=== PATIENT | male | born 1990 | race Caucasian/White ===

== ENCOUNTER 2016-10-12 15:51 | Emergency (ER) | payer MEDICARE, MEDICAID ==
[2016-10-12] MEDS ORDERED: Acetaminophen TAB* 325 MG PO ONE (17:48)
[2016-10-12] MEDS ORDERED: Amoxicillin CAP* 250 MG PO ONE (18:09)
--- NOTE | 2016-10-12 18:10 | ED ---
Influenza-Like Illness - HPI Summary HPI Summary: Patient presents with sore throat and cough since last night. He says his throat chopra when he swallows. He denies fever, chills, [place], SOB or back pain. He has not been around any ill contacts. No difficulty breathing. 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 Onset/Duration: Gradual Onset Severity: Mild Associated Signs & Symptoms: Cough, Sore Throat - Allergy/Home Medications Allergies/Adverse Reactions: Allergies Allergy/AdvReac Type Severity Reaction Status Date / Time No Known Allergies Allergy Verified 03/25/15 14:10 PMH/Surg Hx/FS Hx/Imm Hx Neurological History: Reports: Hx Seizures Infectious Disease History: No Infectious Disease History: Denies: History Other Infectious Disease, Traveled Outside the in Last 30 Days - Family History Known Family History: Positive: None - Social History Occupation: Unemployed Lives: With Family Alcohol Use: None Substance Use Type: Reports: None Smoking Status (MU): Never Smoked Tobacco Review of Systems Positive: Fatigue. Negative: Fever, Chills Positive: Sore Throat, Nasal Discharge. Negative: Ear Ache Negative: Chest Pain Positive: Cough. Negative: Shortness Of Breath Negative: Vomiting, Diarrhea, Nausea Negative: Headache All Other Systems Reviewed And Are Negative: Yes Physical Exam Triage Information Reviewed: Yes Vital Signs On Initial Exam: Initial Vitals Temp Pulse Resp BP Pulse Ox 98.6 F 119 20 156/106 99 10/12/16 15:54 10/12/16 15:54 10/12/16 15:54 10/12/16 15:54 10/12/16 15:54 Vital Signs Reviewed: Yes Appearance: Positive: Well-Appearing, No Pain Distress, Obese Skin: Positive: Warm, Skin Color Reflects Adequate Perfusion, Dry, Soft Head/Face: Positive: Normal Head/Face Inspection Eyes: Positive: EOMI, SURJIT, Conjunctiva Clear ENT: Positive: Hearing grossly normal, Pharyngeal erythema, TMs normal. Negative: Tonsillar swelling, Tonsillar exudate Neck: Positive: Supple, Nontender, No Lymphadenopathy Respiratory/Lung Sounds: Positive: Clear to Auscultation, Breath Sounds Present Cardiovascular: Positive: RRR - on exam Abdomen Description: Positive: Nontender, Soft Bowel Sounds: Positive: Present Musculoskeletal: Negative: Edema Left, Edema Right Neurological: Positive: Sensory/Motor Intact, Alert, Oriented to Person Place, Time, NV Bundle Intact Distally, Normal Gait Psychiatric: Positive: Affect/Mood Appropriate AVPU Assessment: Alert Diagnostics - Vital Signs Vital Signs Temp Pulse Resp BP Pulse Ox 10/12/16 17:20 98.6 F 119 22 156/109 99 10/12/16 15:54 98.6 F 119 20 156/106 99 - Laboratory Lab Results: Lab Results 10/12/16 Range/Units 17:15 Group A Strep Rapid Positive H (Negative) Lab Statement: Any lab studies that have been ordered have been reviewed, and results considered in the medical decision making process. Flu Symptom Course/Dx - Diagnoses Differential Diagnosis/HQI/PQRI: Positive: Bronchitis, Influenza, Pneumonia, Upper Respiratory Infection Provider Diagnoses: Strep pharyngitis Discharge - Discharge Plan Condition: Stable Disposition: HOME Prescriptions: Amoxicillin CAP* [Amoxicillin 500 MG CAP*] 500 mg PO Q12H #19 cap Patient Education Materials: Strep Throat (ED) Referrals: Adam Lim MD [Primary Care Provider] - Additional Instructions: Please take the antibiotics prescribed until they are completely gone. Follow- up with your primary care provider if your symptoms do not begin to improve in the next 2-3 days. Return to the emergency department if symptoms worsen.
[2016-10-12 18:39] VITALS: BP 159/92
== END 2016-10-12 18:39 | disposition home or self-care (01) ==
LOC: ED 15:51
DX: J02.0 Streptococcal pharyngitis (principal)
CPT/HCPCS: 87651; 99282; A9270-GY

== ENCOUNTER 2016-11-15 17:39 | Emergency (ER) | payer MEDICARE, MEDICAID ==
[2016-11-15] MEDS ORDERED: Ondansetron INJ* 2 MG/ML VIAL IV ONE (20:05)
[2016-11-15] MEDS ORDERED: Pantoprazole IV* 40 MG IV ONE (20:05)
[2016-11-15] MEDS ORDERED: NS 0.9% 1000 ML* 2,000 ML IV ONE (20:05)
[2016-11-15 20:24] LABS: Hematocrit 40 % (42-52); Hemoglobin 13.3 g/dl (14.0-18.0); Mean Corpuscular HGB Conc 33 g/dl (31-36); Mean Corpuscular Hemoglobin 28 pg (27-31); Mean Corpuscular Volume 85 fL (80-94); Mean Platelet Volume 8 um3 (7.4-10.4); Red Blood Count 4.71 10^6/ul (4.0-5.4); Red Cell Distribution Width 14 % (10.5-15); White Blood Count 11.3 10^3/ul (3.5-10.8)
[2016-11-15 20:36] LABS: Albumin 4.3 g/dL (3.2-5.2); BUN/Creatinine Ratio 11.3 (8-20); C Reactive Protein 2.99 mg/L (< 5.00); Calcium 9.3 mg/dL (8.6-10.3); EGFR African American 203.3 (>60); EGFR Non-African American 158.1 (>60); Globulin 3.5 g/dL (2-4); Potassium 3.9 mmol/L (3.5-5.0); Total Bilirubin 0.6 mg/dL (0.2-1.0); Total Protein 7.8 g/dL (6.4-8.9)
--- NOTE | 2016-11-15 21:05 | RAD ---
INDICATION: Sharp RIGHT chest pain. Aggravated by coughing and deep inspiration. COMPARISON: No relevant prior exams available on the [facility] PACS for comparison. TECHNIQUE: Dual energy PA and routine lateral views of the chest were obtained. REPORT: Suboptimal inspiration on the PA view with resulting mild crowding of the pulmonary markings. No compelling alveolar consolidation to raise concern for pneumonia. No focal pulmonary lesion, pleural effusion, or pneumothorax. The heart, pulmonary vasculature, and mediastinal contours are unremarkable. IMPRESSION: No evidence for acute intrathoracic disease.
[2016-11-15 22:18] VITALS: BP 172/97
--- NOTE | 2016-11-16 05:03 | ED ---
Linda Lauren Alok, scribed for Domo Gamble MD on 11/15/16 at 1958 . Complex/Multi-Sys Presentation - HPI Summary HPI Summary: 26M presents to the ED for body tremors and a red face after coming home from baseball this evening. Pt states that his body tremors affected only his upper extremities bilaterally and were unwitnessed at the time of their onset. Pt also notes vomiting, diarrhea, mid-sternal CP, cough, SOB when coughing, chills and diaphoresis even earlier today. Pt states he vomited 4-5 times today with brown emesis. Pt states that his CP is sharp and aggravated by vomiting and cough. Pt notes being around "some sick people" recently. Pt denies eating anything unusual today. Pt denies fever or LOC. Pt denies lower extremity pain or swelling. Pt denies sore throat or rhinorrhea. PMHx includes h/o sz described with eyes rolling backwards. Pt denies seizure today and states he has not had one recently. Pt also notes h/o strep throat 3 weeks ago. - History Of Current Complaint Chief Complaint: EDGeneral Time Seen by Provider: 11/15/16 19:41 Hx Obtained From: Patient Onset/Duration: Lasting Hours, Still Present Timing: Constant Severity Currently: Moderate Severity Initially: Moderate Associated Signs And Symptoms: Positive: SOB, Cough, Chest Pain, Nausea, Vomiting, Diarrhea, Abdominal Pain, Diaphoresis. Negative: Syncope, Edema, Fever - Allergies/Home Medications Allergies/Adverse Reactions: Allergies Allergy/AdvReac Type Severity Reaction Status Date / Time No Known Allergies Allergy Verified 03/25/15 14:10 PMH/Surg Hx/FS Hx/Imm Hx Neurological History: Reports: Hx Seizures Infectious Disease History: Unable to Obtain/Confirm Infectious Disease History: Denies: History Other Infectious Disease, Traveled Outside the [place] in Last 30 Days - Family History Known Family History: Negative: Cardiac Disease, Hypertension, Diabetes - Social History Occupation: Student Lives: With Family Alcohol Use: None Substance Use Type: Reports: None Smoking Status (MU): Never Smoked Tobacco Review of Systems Positive: Chills, Skin Diaphoresis, Other - facial reddness . Negative: Fever Negative: Sore Throat, Nasal Discharge Positive: Chest Pain Positive: Shortness Of Breath, Cough Positive: Vomiting, Diarrhea, Nausea Positive: Other - body tremors. Negative: Edema Negative: Syncope All Other Systems Reviewed And Are Negative: Yes Physical Exam - Summary Physical Exam Summary: The patient is obese in no acute distress and in no acute pain. The skin is warm and diaphoretic and skin color reflects adequate perfusion. HEENT: The head is normocephalic and atraumatic. The pupils are equal and reactive. The conjunctivae are clear and without drainage. Nares are patent and without drainage. Mouth reveals dry mucous membranes and the throat is without erythema and exudate. The external ears are intact. The ear canals are patent and without drainage. The tympanic membranes are intact. Neck is supple with full range of motion and non-tender. There are no carotid bruits. There is no neck vein distension. Respiratory: Patient points to mid-sternal chest tenderness. Lungs are clear to auscultation and breath sounds are symmetrical and equal. No rales, rhonchi, or wheezing. Cardiovascular: Heart is regular rate and rhythm. There is no murmur or rub auscultated. There is no pitting edema and pulses are symmetrical and equal. Abdomen: The abdomen is soft and non-tender. No epigastric tenderness. There are normal bowel sounds heard in all four quadrants and there is no organomegaly palpated. Musculoskeletal: There is no back pain noted. Extremities are non-tender with full range of motion. There is good capillary refill. There is no pitting edema or calf tenderness elicited. No body tremors. Neurological: Patient is alert and oriented to person, place and time. The patient has symmetrical motor strength in all four extremities. Cranial nerves are grossly intact. Deep tendon reflexes are symmetrical and equal in all four extremities. Good [id number] . No pronator drift. Psychiatric: The patient has an appropriate affect and does not exhibit any anxiety or depression. Triage Information Reviewed: Yes Vital Signs On Initial Exam: Initial Vitals Temp Pulse Resp BP Pulse Ox 98.2 F 104 20 164/94 100 11/15/16 17:41 11/15/16 17:41 11/15/16 17:41 11/15/16 17:41 11/15/16 17:41 Vital Signs Reviewed: Yes - Sushila Coma Scale Coma Scale Total: 15 Diagnostics - Vital Signs Vital Signs Temp Pulse Resp BP Pulse Ox 11/15/16 19:30 91 157/93 97 11/15/16 19:00 92 155/104 96 07/26/17 18:32 96 21 97 11/15/16 18:30 160/91 11/15/16 18:29 98.3 F 97 20 174/89 98 11/15/16 17:41 98.2 F 104 20 164/94 100 - Laboratory Lab Results: Lab Results 11/15/16 11/15/16 11/15/16 Range/Units 20:06 20:06 20:06 WBC 11.3 H (3.5-10.8) 10^3/ul RBC 4.71 (4.0-5.4) 10^6/ul Hgb 13.3 L (14.0-18.0) g/dl Hct 40 L (42-52) % MCV 85 (80-94) fL MCH 28 (27-31) pg MCHC 33 (31-36) g/dl RDW 14 (10.5-15) % Plt Count 213 (150-450) 10^3/ul MPV 8 (7.4-10.4) um3 Neut % (Auto) 55.0 (38-83) % Lymph % (Auto) 35.6 (25-47) % Quay % (Auto) 6.6 (1-9) % Eos % (Auto) 0.9 (0-6) % Baso % (Auto) 1.9 (0-2) % Absolute Neuts (auto) 6.2 (1.5-7.7) 10^3/ul Absolute Lymphs (auto) 4.0 (1.0-4.8) 10^3/ul Absolute Monos (auto) 0.7 (0-0.8) 10^3/ul Absolute Eos (auto) 0.1 (0-0.6) 10^3/ul Absolute Basos (auto) 0.2 (0-0.2) 10^3/ul Absolute Nucleated RBC 0.01 10^3/ul Nucleated RBC % 0.1 Sodium 135 (133-145) mmol/L Potassium 3.9 (3.5-5.0) mmol/L Chloride 102 (101-111) mmol/L Carbon Dioxide 26 (22-32) mmol/L Anion Gap 7 (2-11) mmol/L BUN 7 (6-24) mg/dL Creatinine 0.62 L (0.67-1.17) mg/dL Est GFR ( Amer) 203.3 (>60) Est GFR (Non-Af Amer) 158.1 (>60) BUN/Creatinine Ratio 11.3 (8-20) Glucose 95 (70-100) mg/dL Lactic Acid 1.6 (0.5-2.0) mmol/L Calcium 9.3 (8.6-10.3) mg/dL Total Bilirubin 0.60 (0.2-1.0) mg/dL AST 25 (13-39) U/L ALT 46 (7-52) U/L Alkaline Phosphatase 31 L (34-104) U/L C-Reactive Protein 2.99 (< 5.00) mg/L Total Protein 7.8 (6.4-8.9) g/dL Albumin 4.3 (3.2-5.2) g/dL Globulin 3.5 (2-4) g/dL Albumin/Globulin Ratio 1.2 (1-3) Amylase 29 (29-103) U/L Lipase 36 (11.0-82.0) U/L Valproic Acid 84.0 (50-100) mcg/mL Result Diagrams: 11/15/16 20:06 11/15/16 20:06 Lab Statement: Any lab studies that have been ordered have been reviewed, and results considered in the medical decision making process. - Radiology CXR Xray Interpretation: Positive (See Comments) - IMPRESSION: No evidence for acute intrathoracic disease. Radiology Interpretation Completed By: Radiologist - EKG 1843 Cardiac Rate: NL - 96 bpm EKG Rhythm: Sinus Rhythm EKG Interpretation: Normal axis. Poor R-wave progression. Re-Evaluation - Re-Evaluation First Eval Re-Evaluation Time: 22:15 Comment: Patient notes mild pain with food injestion Complex Multi-Symp Course/Dx Course Of Treatment: 26 y/o male presents with CP and N/V/D. He was given IV fluids and anti-nausea medications. EKG and CXR both normal. Will discharge home with rx for Prilosec and Zofran and instructions to FU with PCP. - Diagnoses Provider Diagnoses: GERD (gastroesophageal reflux disease), HTN (hypertension) Discharge - Discharge Plan Condition: Stable Disposition: HOME Prescriptions: Omeprazole CAP* [Prilosec CAP* 20 MG] 20 mg PO DAILY #30 cap. Ondansetron ODT TAB* [Zofran 4 MG Odt TAB*] 4 mg PO Q8H PRN #10 tab.odt PRN Reason: nausea Patient Education Materials: Gastroesophageal Reflux Disease (ED), Hypertension (ED) Referrals: Danna JACKSON,Leatha Brink [Primary Care Provider] - Additional Instructions: Please follow up with your primary care provider The documentation as recorded by the Linda jacobs Alok accurately reflects the service I personally performed and the decisions made by , Domo Gamble MD.
== END 2016-11-15 22:30 | disposition home or self-care (01) ==
LOC: ED 17:39 → SUPCPDRO 17:39 → ED 22:30
DX: K21.9 Gastro-esophageal reflux disease without esophagitis (principal); I10 Essential (primary) hypertension; R06.02 Shortness of breath; R05 Cough; R07.9 Chest pain, unspecified; R11.2 Nausea with vomiting, unspecified; R19.7 Diarrhea, unspecified; R10.9 Unspecified abdominal pain
CPT/HCPCS: 36415; 71020; 80053; 80164; 82150; 83605; 83690; 85025; 86140; 93005; 99283; J2405

== ENCOUNTER 2017-01-23 10:25 | Emergency (ER) | payer MEDICARE, MEDICAID ==
[2017-01-23 11:20] VITALS: BP 143/92
--- NOTE | 2017-01-23 13:56 | ED ---
Skin Complaint - HPI Summary HPI Summary: Patient presents to the with CC of diffuse pruritic rash throughout the extremities sparing the abdomen and face. He denies any change of soaps, detergents, lotions or contacts. Denies any known bug bites. He denies being outside and denies change of environments. He states he began to get the rash 2 days ago but feels like it has not been spreading. Concerned over chicken pox. His extremities have diffuse erythematous small papules with small lesions in the most superior part of the papule which all measure about .1-.2cm without obvious burrows, vesicles or scaly edge. - History of Current Complaint Chief Complaint: [facility] Time Seen by Provider: 01/23/17 11:31 Stated Complaint: RASH Hx Obtained From: Patient Onset/Duration: Started Days Ago Skin Exposure Onset/Duration: Days Ago Timing: Constant Onset Severity: Mild Current Severity: Mild Pain Intensity: 0 Pain Scale Used: 0-10 Numeric Skin Location: Diffuse - extremtities Character: Pruritus Aggravating Symptom(s): Nothing Alleviating Symptom(s): Nothing Associated Signs & Symptoms: Negative - Allergy/Home Medications Allergies/Adverse Reactions: Allergies Allergy/AdvReac Type Severity Reaction Status Date / Time No Known Allergies Allergy Verified 01/23/17 11:13 PMH/Surg Hx/FS Hx/Imm Hx Previously Healthy: Yes Neurological History: Reports: Hx Seizures Infectious Disease History: No Infectious Disease History: Denies: History Other Infectious Disease, Traveled Outside the [place] in Last 30 Days - Family History Known Family History: Positive: None Negative: Cardiac Disease, Hypertension, Diabetes - Social History Occupation: Unemployed Lives: With Family Alcohol Use: None Hx Substance Use: No Substance Use Type: Reports: None Hx Tobacco Use: No Smoking Status (MU): Never Smoked Tobacco Review of Systems Constitutional: Negative Eyes: Negative Cardiovascular: Negative Respiratory: Negative Genitourinary: Negative Positive: no symptoms reported, see HPI Musculoskeletal: Negative Positive: Rash Neurological: Negative Psychological: Normal All Other Systems Reviewed And Are Negative: Yes Physical Exam Triage Information Reviewed: Yes Vital Signs On Initial Exam: Initial Vitals Temp Pulse Resp BP Pulse Ox 99.7 F 91 16 143/92 96 01/23/17 11:16 01/23/17 11:16 01/23/17 11:16 01/23/17 11:16 01/23/17 11:16 Vital Signs Reviewed: Yes Appearance: Positive: Well-Appearing, Well-Nourished Skin: Positive: Warm, Skin Color Reflects Adequate Perfusion Head/Face: Positive: Normal Head/Face Inspection, Temporal Artery Tenderness Neck: Positive: Supple, No Lymphadenopathy Respiratory/Lung Sounds: Positive: Clear to Auscultation, Breath Sounds Present Cardiovascular: Positive: Normal, RRR, Pulses are Symmetrical in both Upper and Lower Extremities Musculoskeletal: Positive: Normal, Strength/ROM Intact Neurological: Positive: Sensory/Motor Intact, Alert, Oriented to Person Place, Time, Speech Normal Psychiatric: Positive: Normal, Affect/Mood Appropriate AVPU Assessment: Alert Diagnostics - Vital Signs Vital Signs Temp Pulse Resp BP Pulse Ox 01/23/17 11:16 99.7 F 91 16 143/92 96 - Laboratory Lab Statement: Any lab studies that have been ordered have been reviewed, and results considered in the medical decision making process. Course/Dx - Course Course Of Treatment: His extremities have diffuse erythematous small papules with small lesions in the most superior part of the papule which all measure about .1-.2cm without obvious burrows, vesicles or scaly edge. Treatment options discussed. He is given 50mg prednisone x 5 days. Continue the hydrocortisone. Will defer at this time any anti-itch medication because he is curretnly on clonidine. Patient and mother OK with discharge. - Differential Diagnoses - Skin Complaint Differential Diagnoses: Poison Jennifer, Poison [place], Scabies, Urticaria, Varicella Zoster - Diagnoses Provider Diagnoses: Urticaria Discharge - Discharge Plan Condition: Stable Disposition: HOME Prescriptions: predniSONE TAB* [Deltasone TAB*] 50 mg PO DAILY #5 tab MDD 1 Patient Education Materials: Acute Rash (ED) Referrals: Danna JACKSON,Leatha Brink [Primary Care Provider] - Additional Instructions: As discussed, I will not be placing you on a anti-itch medication d/t your current medications Clonidine - this can have additive unwanted side effects The steroid (Prednisone) is safe with your medications and will help resolve the rash. It is unknown what kind of rash you are having, but likely will improve with the steroid - If you develop any other symptoms or worsening symptoms - return to the ED or go to the
== END 2017-01-23 11:45 | disposition home or self-care (01) ==
LOC: UCEAST 10:25
DX: L50.9 Urticaria, unspecified (principal)
CPT/HCPCS: 99212; G0463

== ENCOUNTER 2017-06-05 13:39 | Emergency (ER) | payer MEDICARE, MEDICAID ==
[2017-06-05 17:27] VITALS: BP 167/98
--- NOTE | 2017-06-05 19:03 | UC ---
Mike Lauren Julia, scribed for Adam Garcia MD on 06/05/17 at 1647 . General HPI - HPI Summary HPI Summary: This patient is a 26 year old M presenting to [facility] with a chief complaint of intermittent watery bloody diarrhea once on 05/02/17 and four times today. Patient reports, chest pain with deep breath, low back pain, dizziness and general malaise today, R knee and calf pain today, and bumpy rash on shoulders and scalp. Patient denies urinary symptoms. The patient rates the pain 5/10 in severity. Pt reports solid some solid stool since 05/02/17. Pt reports trace amount blood in diarrhea. - History of Current Complaint Chief Complaint: UCGI Stated Complaint: DIARREAH Time Seen by Provider: 06/05/17 16:36 Hx Obtained From: Patient Onset/Duration: Lasting Days Timing: Intermittent Episodes Lasting: - days Pain Intensity: 5 - Allergy/Home Medications Allergies/Adverse Reactions: Allergies Allergy/AdvReac Type Severity Reaction Status Date / Time No Known Allergies Allergy Verified 06/05/17 15:49 PMH/Surg Hx/FS Hx/Imm Hx GI/ History: Other - denies hx of hemmoroids Other GI/ History: denies hx of Hemorrhoids - Surgical History Surgical History: None Surgery Procedure, Year, and Place: denies - Family History Known Family History: Negative: Cardiac Disease, Hypertension, Diabetes - Social History Alcohol Use: None Substance Use Type: None Smoking Status (MU): Never Smoked Tobacco Review of Systems Skin: Rash - "bumpy" shoulder and scalp Cardiovascular: Chest Pain - with deep breaths Gastrointestinal: Diarrhea Genitourinary: Negative Musculoskeletal: Myalgia - back pain, R knee pain, R calf pain Neurological: Other - dizzy All Other Systems Reviewed And Are Negative: Yes Physical Exam Triage Information Reviewed: Yes Vital Signs: Initial Vital Signs Temp 98.6 F 06/05/17 15:42 Pulse 95 06/05/17 15:42 Resp 16 06/05/17 15:42 BP 138/89 06/05/17 15:42 Pulse Ox 99 06/05/17 15:42 Vital Signs Reviewed: Yes - Additional Comments General: well-appearing, no pain distress Skin: warm, color reflects adequate perfusion, dry Head: normal Eyes: EOMI, SURJIT ENT: normal Neck: supple, nontender Respiratory: CTA, breath sounds present Cardiovascular: RRR Abdomen: soft, nontender Bowel: present Musculoskeletal: normal, strength/ROM intact Neurological: normal, sensory/motor intact, A&O x3 Psychological: affect/mood appropriate Course/Dx - Course Course Of Treatment: ABDOMEN NON TENDER ON EXAM. VSS IN CLINIC. PATIENT REPORTS SPECS OF BLOOD IN THE STOOL SO, A SIGNIFICANT GI BLEED IS NOT PRESENT BASED ON HISTORY. F/U PMD; GO TO ED IF WORSE. - Differential Dx - Multi-Symptom Provider Diagnoses: DIARRHEA Discharge - Discharge Plan Condition: Stable Disposition: HOME Patient Education Materials: Acute Diarrhea (ED) [place] [facility] [place] [facility] [Outside] Additional Instructions: FOLLOW UP WITH YOUR DOCTOR. GET RECHECKED FOR ANY WORSENING OF YOUR CONDITION OR QUESTIONS OR CONCERNS. The documentation as recorded by the Mike jacobs Julia accurately reflects the service I personally performed and the decisions made by me, Adam Garcia MD.
== END 2017-06-05 17:45 | disposition home or self-care (01) ==
LOC: UCEAST 13:39
DX: R19.7 Diarrhea, unspecified (principal); R07.1 Chest pain on breathing; M54.5 Low back pain; R42 Dizziness and giddiness; R53.81 Other malaise; M79.661 Pain in right lower leg
CPT/HCPCS: 87502; 99212; G0463

== ENCOUNTER 2019-07-04 21:24 | Emergency (ER) | payer MEDICARE, MEDICAID ==
[2019-07-04 21:46] VITALS: BP 168/107
== END 2019-07-04 22:30 | disposition left against medical advice (07) ==
LOC: ED 21:24
DX: R10.30 Lower abdominal pain, unspecified (principal); Z53.21 Procedure and treatment not carried out due to patient leaving prior to being seen by health care provider
CPT/HCPCS: 99281